=== PATIENT | female | born 1950 | race Caucasian/White ===

== ENCOUNTER 2017-02-06 21:52 | Inpatient (IN) | payer MEDICARE, MEDICAID ==
[~2017-02-06] VITALS: Ht 157.5 cm; Wt 58.9 kg
[2017-02-06] MEDS ORDERED: DIPH25CA61 PO (22:47)
[2017-02-06 22:59] LABS: HEMOGLOBIN 12.8 g/dL (11.7-16.4)
[2017-02-06] MEDS ORDERED: MORPHINE SULFATE 4 MG/ML, 1ML IVPush PRN (23:00)
[2017-02-06] MEDS ORDERED: SODIUM CHLORIDE FLUSH 10ML SYR IVF ONE (23:00)
[2017-02-06] MEDS ORDERED: ONDANSETRON 2MG/ML, 2ML IVPush ONE (23:00)
[2017-02-06] MEDS ORDERED: SODIUM CHLORIDE 0.9% 1,000ML IVBOLUS ONE (23:00)
[2017-02-06] MEDS ORDERED: LORazepam 2 MG/ML, 1ML IVPush ONE (23:00)
[2017-02-06 23:13] LABS: ASPARTATE AMINO TRANSFERASE 19 U/L (15-37); BLOOD UREA NITROGEN 14 mg/dL (7-18)
[2017-02-06] MEDS ORDERED: MORPHINE SULFATE 4 MG/ML, 1ML ONE (23:45)
[2017-02-06] MEDS ORDERED: ONDANSETRON 2MG/ML, 2ML ONE (23:45)
[2017-02-06] MEDS ORDERED: LORazepam 2 MG/ML, 1ML ONE (23:46)
[2017-02-06] MEDS ORDERED: FURO20TA3 PO (23:54)
[2017-02-06] MEDS ORDERED: FAMO-79 PO (23:54)
[2017-02-06] MEDS ORDERED: HYDR25CA PO (23:54)
[2017-02-06] MEDS ORDERED: OXYC10TA32 PO (23:54)
[2017-02-07] MEDS ORDERED: POLYETHYLENE GLYCOL 17 GM PACKET PO PRN (02:00)
[2017-02-07] MEDS ORDERED: ACETAMINOPHEN 325 MG TABLET PO PRN (02:00)
[2017-02-07] MEDS ORDERED: DOCUSATE 100 MG CAPSULE PO PRN (02:00)
[2017-02-07] MEDS: NICOTINE 7 MG/24 HR PATCH.TD24 TD SCH (02:00)
[2017-02-07 03:10] VITALS: BP 129/74
[2017-02-07] MEDS: CEFTRIAXONE PMX 1GM/50ML 50 ML IV SCH (04:01)
[2017-02-07] MEDS: METOCLOPRAMIDE 5 MG/ML, 2ML IVPush SCH ×4 (04:02→22:43)
[2017-02-07] MEDS: MORPHINE SULFATE 4 MG/ML, 1ML IVPush PRN ×5 (04:42→22:47)
[2017-02-07] MEDS ORDERED: OMNIPAQUE 350 MG/ML, 100ML BOTTLE ONE (05:30)
[2017-02-07 06:39] VITALS: BP 105/65
[2017-02-07] MEDS: NS + 20MEQ KCL 1,000 ML IV SCH ×2 (06:43→17:58)
[2017-02-07] MEDS: FAMOTIDINE 20 MG TABLET PO SCH (09:01)
[2017-02-07] MEDS: OxyconTIN ER 10 MG TAB.ER PO SCH ×2 (09:01→20:15)
[2017-02-07] MEDS: SENNA/DOCUSATE TABLET PO SCH (09:01)
[2017-02-07] MEDS: FUROSEMIDE 20 MG TABLET PO SCH (09:01)
[2017-02-07 12:34] VITALS: BP 92/59
[2017-02-07 18:22] VITALS: BP 86/52
[2017-02-07 20:07] VITALS: BP 102/63
[2017-02-07] MEDS: DIPHENHYDRAMINE 25 MG CAPSULE PO SCH (20:15)
[2017-02-08] MEDS: MORPHINE SULFATE 4 MG/ML, 1ML IVPush PRN ×4 (01:50→21:58)
[2017-02-08] MEDS: NICOTINE 7 MG/24 HR PATCH.TD24 TD SCH (01:52)
[2017-02-08 03:05] VITALS: BP 103/67
[2017-02-08] MEDS: METOCLOPRAMIDE 5 MG/ML, 2ML IVPush SCH ×4 (04:22→21:54)
[2017-02-08] MEDS: CEFTRIAXONE PMX 1GM/50ML 50 ML IV SCH (04:23)
[2017-02-08 05:33] LABS: BLOOD UREA NITROGEN 11 mg/dL (7-18)
[2017-02-08 06:44] VITALS: BP 99/61
[2017-02-08] MEDS: SENNA/DOCUSATE TABLET PO SCH (08:42)
[2017-02-08] MEDS: FAMOTIDINE 20 MG TABLET PO SCH (08:42)
[2017-02-08] MEDS: OxyconTIN ER 10 MG TAB.ER PO SCH ×2 (08:42→21:52)
[2017-02-08] MEDS: FUROSEMIDE 20 MG TABLET PO SCH (08:43)
[2017-02-08] MEDS ORDERED: ALUMINUM/MAG/SIMETHICONE 30 ML UDC PO ONE (10:00)
[2017-02-08] MEDS: PANTOPRAZOLE 40 MG IV IVPush SCH ×2 (11:17→21:53)
[2017-02-08] MEDS: D5%-0.9% NACL 1,000 ML IV SCH ×2 (13:06→21:53)
[2017-02-08 13:45] VITALS: BP 105/63
[2017-02-08] MEDS: ONDANSETRON 2MG/ML, 2ML IVP PRN (14:26)
[2017-02-08 19:30] VITALS: BP 101/55
[2017-02-08] MEDS: DIPHENHYDRAMINE 25 MG CAPSULE PO SCH (21:52)
[2017-02-09] MEDS: NICOTINE 7 MG/24 HR PATCH.TD24 TD SCH (02:00)
[2017-02-09 04:36] VITALS: BP 124/54
[2017-02-09] MEDS: METOCLOPRAMIDE 5 MG/ML, 2ML IVPush SCH ×4 (04:39→21:53)
[2017-02-09] MEDS: MORPHINE SULFATE 4 MG/ML, 1ML IVPush PRN ×3 (04:39→21:53)
[2017-02-09] MEDS: CEFTRIAXONE PMX 1GM/50ML 50 ML IV SCH (04:39)
[2017-02-09 06:48] VITALS: BP 110/66
[2017-02-09] MEDS: D5%-0.9% NACL 1,000 ML IV SCH ×2 (09:12→18:07)
[2017-02-09] MEDS: FUROSEMIDE 20 MG TABLET PO SCH (09:13)
[2017-02-09] MEDS: PANTOPRAZOLE 40 MG IV IVPush SCH ×2 (09:14→21:53)
[2017-02-09] MEDS: SENNA/DOCUSATE TABLET PO SCH (09:14)
[2017-02-09] MEDS: OxyconTIN ER 10 MG TAB.ER PO SCH ×2 (09:16→21:53)
[2017-02-09 13:07] VITALS: BP 101/63
[2017-02-09 20:18] VITALS: BP 110/71
[2017-02-09] MEDS: DIPHENHYDRAMINE 25 MG CAPSULE PO SCH (21:53)
[2017-02-10] MEDS: NICOTINE 7 MG/24 HR PATCH.TD24 TD SCH (02:00)
[2017-02-10] MEDS: MORPHINE SULFATE 4 MG/ML, 1ML IVPush PRN ×5 (03:25→20:37)
[2017-02-10] MEDS: METOCLOPRAMIDE 5 MG/ML, 2ML IVPush SCH ×4 (03:25→21:36)
[2017-02-10 03:28] VITALS: BP 99/58
[2017-02-10] MEDS: CEFTRIAXONE PMX 1GM/50ML 50 ML IV SCH (04:13)
[2017-02-10] MEDS: D5%-0.9% NACL 1,000 ML IV SCH ×2 (04:14→13:14)
[2017-02-10 08:44] VITALS: BP 120/66
[2017-02-10] MEDS: SENNA/DOCUSATE TABLET PO SCH (08:46)
[2017-02-10] MEDS: FUROSEMIDE 20 MG TABLET PO SCH (08:46)
[2017-02-10] MEDS: ONDANSETRON 2MG/ML, 2ML IVP PRN (08:47)
[2017-02-10] MEDS: OxyconTIN ER 10 MG TAB.ER PO SCH ×2 (08:47→20:37)
[2017-02-10] MEDS: PANTOPRAZOLE 40 MG IV IVPush SCH ×2 (10:09→21:35)
[2017-02-10 13:10] VITALS: BP 123/60
[2017-02-10] MEDS ORDERED: LORazepam 2 MG/ML, 1ML ONE (17:36)
[2017-02-10] MEDS: LORazepam 2 MG/ML, 1ML IVPush PRN (18:07)
[2017-02-10 20:00] VITALS: BP 110/62
[2017-02-10] MEDS: DIPHENHYDRAMINE 25 MG CAPSULE PO SCH (20:37)
[2017-02-11] MEDS: D5%-0.9% NACL 1,000 ML IV SCH (00:38)
[2017-02-11] MEDS: MORPHINE SULFATE 4 MG/ML, 1ML IVPush PRN ×6 (01:46→21:05)
[2017-02-11] MEDS: NICOTINE 7 MG/24 HR PATCH.TD24 TD SCH (01:46)
[2017-02-11 02:46] VITALS: BP 107/65
[2017-02-11] MEDS: METOCLOPRAMIDE 5 MG/ML, 2ML IVPush SCH ×4 (03:49→22:00)
[2017-02-11] MEDS: CEFTRIAXONE PMX 1GM/50ML 50 ML IV SCH (03:49)
[2017-02-11 05:30] LABS: HEMOGLOBIN 12.8 g/dL (11.7-16.4)
[2017-02-11 05:31] LABS: BLOOD UREA NITROGEN 7 mg/dL (7-18)
[2017-02-11] MEDS ORDERED: METRONIDAZOLE PMX 500MG/100ML 100 ML IV SCH (06:00)
[2017-02-11 07:24] VITALS: BP 109/55
[2017-02-11] MEDS ORDERED: MAGNESIUM SULFATE PMX 4GM/100M 100 ML IV ONE (08:30)
[2017-02-11] MEDS ORDERED: POTASSIUM PHOSPHATE 22 MEQ in SODIUM CHLORIDE 0.9% 500 ML IV ONE (08:30)
[2017-02-11] MEDS: SENNA/DOCUSATE TABLET PO SCH (09:00)
[2017-02-11] MEDS: metroNIDAZOLE 500 MG TABLET PO SCH ×2 (09:35→17:19)
[2017-02-11] MEDS: OxyconTIN ER 10 MG TAB.ER PO SCH ×2 (09:35→21:05)
[2017-02-11] MEDS: POTASSIUM CHLORIDE 40 MEQ in D5%-0.9% NACL 1,000 ML IV SCH ×2 (09:36→19:12)
[2017-02-11] MEDS: LORATADINE 10 MG TABLET PO SCH (13:50)
[2017-02-11 13:51] VITALS: BP 111/51
[2017-02-11 20:29] VITALS: BP 108/57
[2017-02-11] MEDS: DIPHENHYDRAMINE 25 MG CAPSULE PO SCH (21:05)
[2017-02-12] MEDS: MORPHINE SULFATE 4 MG/ML, 1ML IVPush PRN ×4 (01:46→16:55)
[2017-02-12] MEDS: metroNIDAZOLE 500 MG TABLET PO SCH ×3 (01:46→16:54)
[2017-02-12] MEDS: NICOTINE 7 MG/24 HR PATCH.TD24 TD SCH (01:46)
[2017-02-12] MEDS: METOCLOPRAMIDE 5 MG/ML, 2ML IVPush SCH ×4 (03:59→22:00)
[2017-02-12 04:50] VITALS: BP 102/56
[2017-02-12] MEDS: POTASSIUM CHLORIDE 40 MEQ in D5%-0.9% NACL 1,000 ML IV SCH ×2 (04:57→21:12)
[2017-02-12 06:09] LABS: HEMOGLOBIN 11.5 g/dL (11.7-16.4)
[2017-02-12 06:35] LABS: BLOOD UREA NITROGEN 7 mg/dL (7-18)
[2017-02-12 08:19] VITALS: BP 99/55
[2017-02-12] MEDS ORDERED: SODIUM PHOSPHATE 20 MMOL in SODIUM CHLORIDE 0.9% 500 ML IV ONE (08:30)
[2017-02-12] MEDS: SENNA/DOCUSATE TABLET PO SCH (09:00)
[2017-02-12] MEDS: LORATADINE 10 MG TABLET PO SCH (09:42)
[2017-02-12] MEDS: OxyconTIN ER 10 MG TAB.ER PO SCH ×2 (09:42→21:11)
[2017-02-12] MEDS ORDERED: CALCIUM GLUCONATE 4.6 MEQ in SODIUM CHLORIDE 0.9% 50 ML IV ONE (10:30)
[2017-02-12 12:32] VITALS: BP 101/54
[2017-02-12] MEDS: CALCIUM CARBONATE 500 MG TABLET PO SCH ×2 (12:52→21:11)
[2017-02-12] MEDS: MULTIVITAMIN 1 TABLET PO SCH (12:52)
[2017-02-12 21:00] VITALS: BP 116/63
[2017-02-12] MEDS: DIPHENHYDRAMINE 25 MG CAPSULE PO SCH (21:12)
[2017-02-13] MEDS: metroNIDAZOLE 500 MG TABLET PO SCH ×3 (01:34→16:24)
[2017-02-13] MEDS: LORazepam 2 MG/ML, 1ML IVPush PRN ×2 (01:40→19:35)
[2017-02-13] MEDS: NICOTINE 7 MG/24 HR PATCH.TD24 TD SCH (02:00)
[2017-02-13 02:30] VITALS: BP 114/57
[2017-02-13] MEDS: METOCLOPRAMIDE 5 MG/ML, 2ML IVPush SCH ×3 (04:00→16:13)
[2017-02-13 05:45] LABS: BLOOD UREA NITROGEN 4 mg/dL (7-18)
[2017-02-13 07:49] VITALS: BP 123/64
[2017-02-13] MEDS: SENNA/DOCUSATE TABLET PO SCH (08:49)
[2017-02-13] MEDS: OxyconTIN ER 10 MG TAB.ER PO SCH ×2 (08:53→21:13)
[2017-02-13] MEDS: MULTIVITAMIN 1 TABLET PO SCH (08:53)
[2017-02-13] MEDS: LORATADINE 10 MG TABLET PO SCH (08:53)
[2017-02-13] MEDS: CALCIUM CARBONATE 500 MG TABLET PO SCH ×2 (08:53→21:13)
[2017-02-13 13:38] VITALS: BP 125/69
[2017-02-13 19:41] VITALS: BP 117/67
[2017-02-13] MEDS: DIPHENHYDRAMINE 25 MG CAPSULE PO SCH (21:13)
[2017-02-14] MEDS: metroNIDAZOLE 500 MG TABLET PO SCH ×2 (00:19→08:56)
[2017-02-14 01:50] VITALS: BP 126/75
[2017-02-14] MEDS: NICOTINE 7 MG/24 HR PATCH.TD24 TD SCH (02:06)
[2017-02-14] MEDS: LORazepam 2 MG/ML, 1ML IVPush PRN (02:59)
[2017-02-14] MEDS ORDERED: TEMAZEPAM 15 MG CAPSULE PO PRN (05:00)
[2017-02-14 06:13] LABS: HEMOGLOBIN 12.2 g/dL (11.7-16.4)
[2017-02-14 06:15] LABS: BLOOD UREA NITROGEN 11 mg/dL (7-18)
[2017-02-14 07:53] VITALS: BP 121/65
[2017-02-14] MEDS: LORATADINE 10 MG TABLET PO SCH (08:57)
[2017-02-14] MEDS: MULTIVITAMIN 1 TABLET PO SCH (08:57)
[2017-02-14] MEDS: CALCIUM CARBONATE 500 MG TABLET PO SCH (08:57)
[2017-02-14] MEDS: OxyconTIN ER 10 MG TAB.ER PO SCH (09:05)
[2017-02-14] MEDS: POTASSIUM CHLORIDE 20 MEQ TAB.ER.PRT PO SCH ×2 (11:15→14:41)
[2017-02-14] MEDS ORDERED: FLU VACC QS2016-17 (36MOS+)UP/PF 0.5 ML IM-VACC ONE (11:30)
[2017-02-14 12:48] VITALS: BP 117/67
[2017-02-14] MEDS ORDERED: MAGN400T26 PO (14:35)
[2017-02-14] MEDS ORDERED: METR500T PO (14:35)
[2017-02-15] MEDS ORDERED: MAGNESIUM OXIDE 400 MG TABLET PO SCH (09:00)
== END 2017-02-14 15:12 | disposition home or self-care (01) | DRG 389 ==
LOC: ED 23:59 → EDIP 02-07 01:30 → 4NOR 02-07 02:30
PROVIDERS: ADMIT Family Medicine; ATTEND Family Medicine
DX: K56.60 Unspecified intestinal obstruction (principal); N39.0 Urinary tract infection, site not specified; K76.6 Portal hypertension; A04.7 Enterocolitis due to Clostridium difficile; K21.9 Gastro-esophageal reflux disease without esophagitis; B19.20 Unspecified viral hepatitis C without hepatic coma; K74.60 Unspecified cirrhosis of liver; D64.9 Anemia, unspecified; E83.42 Hypomagnesemia; R16.1 Splenomegaly, not elsewhere classified; E87.6 Hypokalemia; F17.200 Nicotine dependence, unspecified, uncomplicated; K66.0 Peritoneal adhesions (postprocedural) (postinfection); Z98.51 Tubal ligation status; Z82.49 Family history of ischemic heart disease and other diseases of the circulatory system; Z80.9 Family history of malignant neoplasm, unspecified; Z88.0 Allergy status to penicillin; Z88.5 Allergy status to narcotic agent
CPT/HCPCS: 36415; 70450; 71010; 74000; 74177; 80048; 80053; 81001; 83690; 83735; 84100; 85025; 87077; 87086; 87324; 90686; 96361; 96374; 96375; J0610; J0696; J2405; J3480; J7042; Q9967; C9113; J2060; J2765; J3475; J7030; J7040; Q0163; Q0177

== ENCOUNTER 2017-06-20 15:08 | Emergency (ER) | payer MEDICARE, MEDICAID ==
[~2017-06-20] VITALS: Ht 157.5 cm; Wt 60.2 kg
[~2017-06-20 15:08] MED LIST: DIPH25CA61 PO; FAMO-79 PO; FURO20TA3 PO; HYDR25CA PO; MAGN400T26 PO; METR500T PO; OXYC10TA32 PO
[2017-06-20 15:10] VITALS: BP 129/80
[2017-06-20] MEDS ORDERED: LIDOCAINE 1%, 20ML SQ ONE (16:00)
[2017-06-20] MEDS ORDERED: DIPH,PERTUSS(ACELL),TET VAC/PF 0.5 ML IM-VACC ONE ×2 (16:00→16:21)
[2017-06-20] MEDS ORDERED: LIDOCAINE 1%, 20ML ONE (16:21)
[2017-06-20] MEDS ORDERED: BACITRACIN ZINC OINT 500U/GM, 0.9 GM ONE (16:42)
== END 2017-06-20 17:45 | disposition home or self-care (01) ==
LOC: ED 17:37
DX: S61.217A Laceration without foreign body of left little finger without damage to nail, initial encounter (principal); F17.210 Nicotine dependence, cigarettes, uncomplicated; W25.XXXA Contact with sharp glass, initial encounter; Y93.89 Activity, other specified; Y92.098 Other place in other non-institutional residence as the place of occurrence of the external cause; Y99.8 Other external cause status
CPT/HCPCS: 12001; 90471; 90715

== ENCOUNTER 2017-09-19 22:53 | Emergency (ER) | payer MEDICARE, MEDICAID ==
[~2017-09-19] VITALS: Ht 157.5 cm; Wt 58.8 kg
[~2017-09-19 22:53] MED LIST changes: -OXYC10TA32 PO; +OXYC10TA47 PO
[2017-09-19 23:50] LABS: HEMATOCRIT 38.3 % (34.6-47.8); WHITE BLOOD COUNT 5.7 x10^3/uL (3.4-10)
[2017-09-20] MEDS ORDERED: PROMETHAZINE 25MG TABLET PO PRN
[2017-09-20] MEDS ORDERED: HYDROmorphone 1 MG/ML, 1ML IVPush ONE
[2017-09-20 00:02] LABS: BLOOD UREA NITROGEN 17 mg/dL (7-18)
[2017-09-20] MEDS ORDERED: HYDROmorphone 1 MG/ML, 1ML ONE (00:15)
[2017-09-20] MEDS ORDERED: OXYC5CAP2 PO (00:55)
[2017-09-20] MEDS ORDERED: DIAZ5TAB PO (00:55)
[2017-09-20 01:48] VITALS: BP 121/84
== END 2017-09-20 02:00 | disposition home or self-care (01) ==
LOC: ED 23:53
DX: S06.0X9A Concussion with loss of consciousness of unspecified duration, initial encounter (principal); W19.XXXA Unspecified fall, initial encounter; Y93.89 Activity, other specified; Y92.009 Unspecified place in unspecified non-institutional (private) residence as the place of occurrence of the external cause; Y99.9 Unspecified external cause status
CPT/HCPCS: 36415; 70450; 72125; 80048; 85025; 85610; 85730; 96374; 99285; J1170; Q0169

== ENCOUNTER 2021-03-31 13:01 | Emergency (ER) | payer MEDICARE, MEDICAID ==
[~2021-03-31] VITALS: Ht 157.5 cm; Wt 57.0 kg
[~2021-03-31 13:01] MED LIST changes: +DIAZ5TAB PO; +OXYC5CAP2 PO
[2021-03-31] MEDS ORDERED: METHOCARBAMOL 500 MG TABLET PO ONE (13:30)
[2021-03-31] MEDS ORDERED: KETOROLAC 30 MG/1 ML IM ONE (13:30)
[2021-03-31] MEDS ORDERED: ONDANSETRON ODT 4 MG PO ONE (13:30)
[2021-03-31] MEDS ORDERED: ONDANSETRON ODT 4 MG ONE (13:43)
[2021-03-31] MEDS ORDERED: KETOROLAC 30 MG/1 ML ONE (13:43)
[2021-03-31] MEDS ORDERED: METHOCARBAMOL 500 MG TABLET ONE (13:44)
--- NOTE | 2021-03-31 13:48 | NUR ---
pt off unit in imaging.
--- NOTE | 2021-03-31 14:10 | NUR ---
PT C/O OF PAIN IN RT SHOULDER AND TAILBONE FOR 4 MONTH OR LONGER. PT REPORTS FALLING OVER A GAS PUMP AND HAS HAD PAIN INTERMITTENTLY SINCE. REPORTS BURNING PAIN THAT CAUSES NAUSEA. MOVEMENT MAKES PAIN WORSE
[2021-03-31 14:52] VITALS: BP 129/68
== END 2021-03-31 14:55 | disposition home or self-care (01) ==
LOC: ED 13:35
DX: M51.34 Other intervertebral disc degeneration, thoracic region (principal); M51.36 Other intervertebral disc degeneration, lumbar region; M25.511 Pain in right shoulder; Z90.710 Acquired absence of both cervix and uterus; F17.200 Nicotine dependence, unspecified, uncomplicated; W18.30XA Fall on same level, unspecified, initial encounter; Y93.89 Activity, other specified; Y92.89 Other specified places as the place of occurrence of the external cause; Y99.8 Other external cause status
CPT/HCPCS: 72072; 72110; 73030; 96372; 99284; J1885; Q0162

== ENCOUNTER 2021-04-14 17:35 | Emergency (ER) | payer MEDICARE, MEDICAID ==
[~2021-04-14] VITALS: Ht 157.5 cm; Wt 58.4 kg
[2021-04-14 17:49] VITALS: BP 130/74
[2021-04-14] MEDS ORDERED: ONDANSETRON ODT 4 MG PO ONE (19:00)
[2021-04-14] MEDS ORDERED: OXYcodone/APAP 10/325MG TABLET PO ONE (19:00)
--- NOTE | 2021-04-14 19:26 | NUR ---
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 STEADY UPON AMBULATION. NO ACUTE DISTRESS NOTED AT THIS TIME.
[2021-04-14] MEDS ORDERED: OXYcodone/APAP 10/325MG TABLET ONE (19:38)
[2021-04-14] MEDS ORDERED: ONDANSETRON ODT 4 MG ONE (19:38)
[2021-04-14] MEDS ORDERED: SODIUM CHLORIDE FLUSH 10ML SYR IVF ONE (20:00)
[2021-04-14] MEDS ORDERED: CEFTRIAXONE 2 GM in DEXTROSE 5% 50 ML IVPB ONE (20:00)
== END 2021-04-14 21:52 | disposition home or self-care (01) ==
LOC: ED 20:30
DX: H70.092 Acute mastoiditis with other complications, left ear (principal); Z88.0 Allergy status to penicillin; Z88.5 Allergy status to narcotic agent
CPT/HCPCS: 70486; 96365; 99284; J0696; Q0162

== ENCOUNTER 2021-04-26 22:18 | Emergency (ER) | payer MEDICARE, MEDICAID ==
[~2021-04-26] VITALS: Ht 157.5 cm; Wt 54.0 kg
--- NOTE | 2021-04-26 22:50 | NUR ---
PT CAME INTO ED TONIGHT AFTER GETTING PRESCRIBED AND ABX FOR AN EAR INFECTION A WHILE BACK AND SINCE THAT POINT "NOT FEELING RIGHT" PT REPORTS NAUSEA, NO VOMITING, ABODMINAL DISCOMFORT AND SOB. PT CHANGED INTO GOWN. Patient is resting comfortably in bed. Bed in lowest, rails engaged, call light on lap. SO AT BS. Vital Signs within normal limits. WCTM. ERP AT BS FOR EVAL AND POC.
[2021-04-26 23:13] LABS: BASOPHILS % (AUTO) 1 % (0-1); EOSINOPHILS % (AUTO) 2 % (1-7); LYMPHOCYTES % (AUTO) 29 % (22-44); MEAN CORPUSCULAR HEMOGLOBIN 27.7 pg (27.0-34.8); MEAN CORPUSCULAR HGB CONC 33.7 g/dL (32.4-35.8); MEAN PLATELET VOLUME 7.3 fL (7.4-10.4); MONOCYTES % (AUTO) 6 % (2-9); NEUTROPHILS % (AUTO) 64 % (42-75); PLATELET COUNT 185 x10^3/uL (130-400); RED BLOOD COUNT 4.54 x10^6/uL (3.82-5.3); RED CELL DISTRIBUTION WIDTH 14.7 % (9.6-15.2)
[2021-04-26 23:16] LABS: MD NO
[2021-04-26 23:17] LABS: ALANINE AMINOTRANSFERASE 19 U/L (12-78); ALBUMIN 3.5 g/dL (3.4-5.0); ANION GAP 5 mmol/L (5-15); CHLORIDE 109 mmol/L (98-107); CREATININE 1.08 mg/dL (0.55-1.02)
[2021-04-26 23:29] LABS: ALKALINE PHOSPHATASE 93 U/L (45-117); BILIRUBIN,TOTAL 0.3 mg/dL (0.2-1.0); TOTAL PROTEIN 6.8 g/dL (6.4-8.2); TROPONIN I < 0.015 ng/mL (0.000-0.045)
[2021-04-27 00:47] VITALS: BP 127/74
--- NOTE | 2021-04-27 00:48 | NUR ---
Patient/Caregiver given discharge instructions and they have confirmed that they understand the instructions. Patient ambulatory with steady gait. NAD, all questions answered appropriately, denies additional needs at this time. No personal belongings left in room after discharge. PROVIDED TAXI VOUCHER TO OK.
== END 2021-04-27 00:49 | disposition home or self-care (01) ==
LOC: ED 04-27
DX: R42 Dizziness and giddiness (principal); M19.90 Unspecified osteoarthritis, unspecified site; Z87.891 Personal history of nicotine dependence
CPT/HCPCS: 36415; 71045; 80053; 84484; 85025; 93005; 99285

== ENCOUNTER 2021-06-19 08:49 | Emergency (ER) | payer MEDICARE, MEDICAID ==
[~2021-06-19] VITALS: Ht 157.5 cm; Wt 60.1 kg
--- NOTE | 2021-06-19 09:22 | NUR ---
pt presents to ed with c/o headache for a week that has gotten worse the last 24 hours. pt states they were dx here with ruptured ear drum about a month ago and cannot see primary MD until next week. neuro intact, pt a&o, resps even and unlabored, kanwal perez. jeanie Hernandez at bedside for eval.
[2021-06-19] MEDS ORDERED: DIPHENHYDRAMINE 50 MG/ML, 1ML IVPush ONE (09:30)
[2021-06-19] MEDS ORDERED: SODIUM CHLORIDE 0.9% 1,000ML IVBOLUS ONE (09:30)
[2021-06-19] MEDS ORDERED: PROCHLORPERAZINE 5 MG/ML, 2ML IVPush ONE (09:30)
[2021-06-19] MEDS ORDERED: DIPHENHYDRAMINE 50 MG/ML, 1ML ONE (09:32)
[2021-06-19] MEDS ORDERED: PROCHLORPERAZINE 5 MG/ML, 2ML ONE (09:32)
[2021-06-19 10:28] VITALS: BP 125/47
--- NOTE | 2021-06-19 10:28 | NUR ---
pt sleeping in bed, resps even and unlabored, vss, nadn. states pain has decreased with medication. call light in reach, warm blanket provided.
--- NOTE | 2021-06-19 11:24 | NUR ---
pt educated on discharge, prescription, follow-up, and return criteria, verbalized understsanding. PIV dc'd with tip intact, vss, nadn. pt ambulatory to discharge with steady gait.
== END 2021-06-19 11:28 | disposition home or self-care (01) ==
LOC: ED 10:01
DX: U07.1 COVID-19 (principal); J15.9 Unspecified bacterial pneumonia; H66.002 Acute suppurative otitis media without spontaneous rupture of ear drum, left ear; G43.909 Migraine, unspecified, not intractable, without status migrainosus; R06.02 Shortness of breath; F17.210 Nicotine dependence, cigarettes, uncomplicated; M19.90 Unspecified osteoarthritis, unspecified site; Z90.710 Acquired absence of both cervix and uterus
CPT/HCPCS: 71045; 96361; 96374; 96375; 99284; 99406; J0780; J1200; J7030; U0003; U0005

== ENCOUNTER 2021-06-21 20:04 | Emergency (ER) | payer MEDICARE, MEDICAID ==
[~2021-06-21] VITALS: Ht 157.5 cm; Wt 61.3 kg
[2021-06-21] MEDS ORDERED: LORazepam 1MG TABLET PO ONE (20:30)
[2021-06-21] MEDS ORDERED: KETOROLAC 30 MG/1 ML IM ONE (20:30)
[2021-06-21 20:36] LABS: BASOPHILS % (AUTO) 0 % (0-1); EOSINOPHILS % (AUTO) 0 % (1-7); LYMPHOCYTES % (AUTO) 6 % (22-44); MEAN CORPUSCULAR HEMOGLOBIN 28.3 pg (27.0-34.8); MEAN CORPUSCULAR HGB CONC 33.6 g/dL (32.4-35.8); MEAN PLATELET VOLUME 7.6 fL (7.4-10.4); MONOCYTES % (AUTO) 5 % (2-9); NEUTROPHILS % (AUTO) 89 % (42-75); PLATELET COUNT 107 x10^3/uL (130-400); RED BLOOD COUNT 4.23 x10^6/uL (3.82-5.3); RED CELL DISTRIBUTION WIDTH 15.2 % (9.6-15.2)
[2021-06-21] MEDS ORDERED: KETOROLAC 30 MG/1 ML ONE (20:40)
[2021-06-21] MEDS ORDERED: LORazepam 1MG TABLET ONE (20:40)
[2021-06-21] MEDS ORDERED: ALBUTEROL/IPRATROPIUM 2.5MG/0.5MG, 3 ML ONE (20:40)
[2021-06-21 20:48] LABS: ALBUMIN 3.5 g/dL (3.4-5.0); ANION GAP 1 mmol/L (5-15); CALCIUM 8.6 mg/dL (8.5-10.1); CHLORIDE 113 mmol/L (98-107); CREATININE 0.61 mg/dL (0.55-1.02)
[2021-06-21] MEDS ORDERED: ALBUTEROL/IPRATROPIUM 2.5MG/0.5MG, 3 ML NPPB ONE (21:00)
[2021-06-21 21:08] VITALS: BP 125/53
--- NOTE | 2021-06-21 21:26 | NUR ---
Pt reports decrease in SOB after duo neb tx
== END 2021-06-21 22:32 | disposition home or self-care (01) ==
LOC: ED 22:13
DX: U07.1 COVID-19 (principal); R06.00 Dyspnea, unspecified; F41.1 Generalized anxiety disorder; R06.4 Hyperventilation; B34.9 Viral infection, unspecified; R06.02 Shortness of breath; M19.90 Unspecified osteoarthritis, unspecified site; F17.210 Nicotine dependence, cigarettes, uncomplicated; Z90.710 Acquired absence of both cervix and uterus
CPT/HCPCS: 36415; 71045; 80048; 82040; 85025; 93005; 94640; 96372; 99285; J1885

== ENCOUNTER 2021-07-16 13:04 | Emergency (ER) | payer MEDICARE, MEDICAID ==
[~2021-07-16] VITALS: Ht 157.5 cm; Wt 60.0 kg
[2021-07-16] MEDS ORDERED: KETOROLAC 30 MG/1 ML IM ONE (18:00)
[2021-07-16] MEDS ORDERED: KETOROLAC 30 MG/1 ML ONE (18:01)
--- NOTE | 2021-07-16 18:42 | NUR ---
Patient given discharge instructions and they have confirmed that they understand the instructions. Patient ambulatory with steady gait.
[2021-07-16 18:43] VITALS: BP 141/70
== END 2021-07-16 18:45 | disposition home or self-care (01) ==
LOC: ED 18:00
DX: M19.032 Primary osteoarthritis, left wrist (principal); H66.002 Acute suppurative otitis media without spontaneous rupture of ear drum, left ear; R51.9 Headache, unspecified; F17.290 Nicotine dependence, other tobacco product, uncomplicated; Z90.710 Acquired absence of both cervix and uterus
CPT/HCPCS: 96372; 99283; 99406; J1885

== ENCOUNTER 2021-07-17 12:58 | Emergency (ER) | payer MEDICARE, MEDICAID ==
[~2021-07-17] VITALS: Ht 157.5 cm; Wt 61.2 kg
--- NOTE | 2021-07-17 13:07 | NUR ---
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
--- NOTE | 2021-07-17 13:28 | NUR ---
PT TO ROOM 28 W/ C/O DIZZINESS THAT HAS BEEN GOING ON FOR A WHILE NOW. PT STATES SHE THOUGHT IT WAS SECONDARY TO EARDUM RUPTURE BUT THE PAIN IS STILL THERE AND WANTS TO ENSURE IT IS NOTHING MORE SERIOUS. PT WAS SEEN HERE YESTERDAY FOR SAME. PT RESTING ON GURNEY. NADN. MONITORS APPLIED. VSS. WARM BLANKET PROVIDED. CALL LIGHT IN REACH. ERP DR. MIKE AT BEDSIDE FOR EVAL.
[2021-07-17 14:22] LABS: BASOPHILS % (AUTO) 1 % (0-1); EOSINOPHILS % (AUTO) 2 % (1-7); LYMPHOCYTES % (AUTO) 25 % (22-44); MEAN CORPUSCULAR HEMOGLOBIN 27.7 pg (27.0-34.8); MEAN CORPUSCULAR HGB CONC 32.9 g/dL (32.4-35.8); MEAN PLATELET VOLUME 7.5 fL (7.4-10.4); MONOCYTES % (AUTO) 6 % (2-9); NEUTROPHILS % (AUTO) 66 % (42-75); PLATELET COUNT 154 x10^3/uL (130-400); RED BLOOD COUNT 4.56 x10^6/uL (3.82-5.3); RED CELL DISTRIBUTION WIDTH 15.9 % (9.6-15.2)
--- NOTE | 2021-07-17 14:22 | NUR ---
BREAK RN: PT GOING TO CT.
[2021-07-17 14:35] LABS: ALANINE AMINOTRANSFERASE 23 U/L (12-78); ALBUMIN 3.5 g/dL (3.4-5.0); ANION GAP 7 mmol/L (5-15); C-REACTIVE PROTEIN, QUANT 0.04 mg/dL (0.02-0.49); CALCIUM 9.3 mg/dL (8.5-10.1); CHLORIDE 108 mmol/L (98-107); CREATININE 0.85 mg/dL (0.55-1.02)
[2021-07-17 14:37] LABS: ALKALINE PHOSPHATASE 72 U/L (45-117); BILIRUBIN,TOTAL 0.6 mg/dL (0.2-1.0); TOTAL PROTEIN 6.7 g/dL (6.4-8.2)
[2021-07-17 14:51] VITALS: BP 135/63
--- NOTE | 2021-07-17 14:52 | NUR ---
PT RESTING ON GURNEY. NADN. AVILES.
[2021-07-17 16:08] LABS: HCT (SEDRATE) 38.4 % (34.6-47.8)
== END 2021-07-17 16:46 | disposition home or self-care (01) ==
LOC: ED 13:30
DX: R42 Dizziness and giddiness (principal); F41.1 Generalized anxiety disorder; M79.18 Myalgia, other site; M19.90 Unspecified osteoarthritis, unspecified site; Z90.710 Acquired absence of both cervix and uterus
CPT/HCPCS: 36415; 70450; 80053; 85025; 85651; 86140; 93005; 99285